=== PATIENT | male | born 1965 ===

== ENCOUNTER 2016-09-16 11:10 | Emergency (ER) | payer OTHER ==
[2016-09-16 11:22] VITALS: BMI 26.2
[2016-09-16 11:26] VITALS: TEMP 98
[2016-09-16] MEDS ORDERED: Sodium Chloride 0.9% 1,000 ML IV ONE ×3 (11:37→13:22)
[2016-09-16 12:10] LABS: EOS # 0.2 K/uL (0.0-0.7); EOS % 1.7 % (0.0-4.0); LYMPH # 1.3 K/uL (1.0-4.3); MONO # 0.8 K/uL (0.0-0.8); MONO % 7.9 % (0.0-10.0); WHITE BLOOD COUNT 10.4 K/uL (4.8-10.8)
[2016-09-16 12:15] LABS: BASO # 0.1 K/uL (0.0-0.2); BASO % 0.8 % (0.0-2.0); LYMPH % 12.3 % (20.0-40.0); MEAN CELL VOLUME 89.4 fL (80.0-94.0); MEAN CORPUSCULAR HEMOGLOBIN 29.8 pg (27.0-31.0); MEAN CORPUSCULAR HGB CONC 33.3 g/dL (33.0-37.0); MEAN PLATELET VOLUME 11.6 fL (7.2-11.7); NEUT % 77.3 % (50.0-75.0); RBC 5.97 Mil/uL (4.40-5.90); RED CELL DISTRIBUTION WIDTH 12.9 % (11.5-14.5)
[2016-09-16 12:16] LABS: HEMOGLOBIN 17.8 g/dL (12.0-18.0)
[2016-09-16 12:18] LABS: ALBUMIN 4.2 g/dL (3.5-5.0)
[2016-09-16 12:20] LABS: GFR AFRICAN-AMERICAN > 60; GFR NON-AFRICAN AMERICAN 53
[2016-09-16 12:21] LABS: ALB/GLOB RATIO 1.2 (1.0-2.1); ALT/SGPT 53 U/L (21-72); AST/SGOT 26 U/L (17-59); BLOOD UREA NITROGEN 31 mg/dL (9-20); CALCIUM 9.6 mg/dl (8.6-10.4)
[2016-09-16] MEDS ORDERED: (Novolin R) Insulin Human Regular 100 units/ml vial IV ONE (12:24)
[2016-09-16 12:29] LABS: SQUAMOUS EPITHIAL < 1 /hpf (0-5); URINE BILIRUBIN NEGATIVE (NEGATIVE); URINE BLOOD NEGATIVE (NEGATIVE); URINE CLARITY Clear (Clear); URINE COLOR Straw (YELLOW); URINE GLUCOSE (UA) 3+ mg/dL (Normal); URINE LEUKOCYTE ESTERASE NEG Leu/uL (Negative); URINE NITRATE NEGATIVE (NEGATIVE); URINE PROTEIN NEGATIVE (NEGATIVE); URINE UROBILINOGEN NORMAL mg/dL (0.2-1.0)
[2016-09-16] MEDS ORDERED: Sodium Chloride 0.9% 2,000 ML ONE (12:29)
[2016-09-16] MEDS ORDERED: (Novolin R) Insulin Human Regular 100 units/ml vial ONE (12:29)
[2016-09-16 13:50] VITALS: BP 95/57; PULSE 76; RESP 18; O2SAT 97
[2016-09-16] MEDS ORDERED: Sodium Chloride 0.9% 1,000 ML ONE (13:53)
--- NOTE | 2016-09-16 14:05 | C.PDOC ---
History Of Present Illness 51 year old male presents to the ED with complaints of polydipsia, feeling weak , and frequent urination since this morning. Patient states at home his blood sugar was >500. He states he has been compliant with his medications including Levemir SubQ, glimepiride, and metformin. He notes his blood sugar is typically in the 200s. Patient denies fever, cough, chest pain, SOB, abdominal pain, nausea, vomiting, diarrhea. Time Seen by Provider: 09/16/16 11:14 Chief Complaint (Nursing): High Blood Sugar History Per: Patient History/Exam Limitations: no limitations Onset/Duration Of Symptoms: Hrs Current Symptoms Are (Timing): Still Present Severity: Moderate Current Diabetic Medications: Insulin, Oral Medication Associated Infectious Symptoms: denies: Cough Treatment Prior To Provider Evaluation: Accucheck, Other (compliant with medications) Past Medical History Reviewed: Historical Data, Nursing Documentation, Vital Signs Vital Signs: Last Vital Signs Temp 98 F 09/16/16 11:22 Pulse 76 09/16/16 13:49 Resp 18 09/16/16 13:49 BP 95/57 L 09/16/16 13:49 Pulse Ox 97 09/16/16 14:35 - Medical History PMH: Diabetes, HTN, Hyperlipidemia - [facility] Procedures TETANUS TOXOID ADMINIST (11/26/14) Family History: States: No Known Family Hx - Social History Hx Alcohol Use: Yes (SOCIALLY) Hx Substance Use: No - Immunization History Hx Tetanus Toxoid Vaccination: No Hx Influenza Vaccination: Yes Hx Pneumococcal Vaccination: No Review Of Systems Except As Marked, All Systems Reviewed And Found Negative. Constitutional: Positive for: Weakness, Other (polydipsia ). Negative for: Fever, Chills Cardiovascular: Negative for: Chest Pain, Palpitations Respiratory: Negative for: Cough, Shortness of Breath Gastrointestinal: Negative for: Nausea, Vomiting, Abdominal Pain, Diarrhea Genitourinary: Positive for: Frequency Neurological: Negative for: Weakness, Numbness, Headache Physical Exam - Physical Exam Appears: Well, Non-toxic, In Acute Distress (appears uncomfortable ) Eye(s): bilateral: Normal Inspection Oral Mucosa: Dry Neck: Supple Chest: Symmetrical, No Deformity Cardiovascular: Rhythm Regular Respiratory: Normal Breath Sounds, No Rales, No Rhonchi, No Wheezing Gastrointestinal/Abdominal: Normal Exam, Bowel Sounds, Soft, No Tenderness Extremity: Normal ROM, No Tenderness Neurological/Psych: Oriented x3 ED Course And Treatment - Laboratory Results Result Diagrams: 09/16/16 11:52 09/16/16 11:52 O2 Sat by Pulse Oximetry: 97 (room air ) Pulse Ox Interpretation: Normal Progress Note: Accucheck >600. Blood work ordered and reviewed. Patient given IV NS boluses x 3, IV insulin. Reevaluation Time: 14:35 Reassessment Condition: Improved (Patient reassessed, is resting comfortably, in no current pain/distress. Repea accucheck 269. Patient is well appearing, and comfortable being dicharged home. Patient instructed to follow up with PMD in 1-2 days, and to continue to use his medications as usual. Patient instructed to return to ED if symptoms worsen.) Disposition Counseled Patient/Family Regarding: Studies Performed, Diagnosis, Need For Followup - Disposition Referrals: Tone Brennan MD [Medical Doctor] - Disposition: HOME/ ROUTINE Disposition Time: 14:35 Condition: STABLE Additional Instructions: FOLLOW UP WITH YOUR DOCTOR IN 1-2 DAYS DRINK PLENTY OF FLUIDS RETURN TO ER IF YOU HAVE ANY CONCERNING SYMPTOMS Instructions: Diabetic Hyperglycemia (ED) Print Language: VIETNAMESE - POA Present On Arrival: None - Clinical Impression Clinical Impression: Hyperglycemia - Scribe Statement The provider has reviewed the documentation as recorded by the Scribe Paz Tubbs All medical record entries made by the Scribe were at my direction and personally dictated by me. I have reviewed the chart and agree that the record accurately reflects my personal performance of the history, physical exam, medical decision making, and the department course for this patient. I have also personally directed, reviewed, and agree with the discharge instructions and disposition.
== END 2016-09-16 14:55 | disposition home or self-care (01) ==
LOC: C.ER 11:10
DX: E11.65 Type 2 diabetes mellitus with hyperglycemia (principal)
CPT/HCPCS: 80053; 81001; 82009; 82948; 83930; 85025; 96361; 96374; 99285; J7040

== ENCOUNTER 2017-04-24 22:12 | Emergency (ER) | payer BC, OTHER ==
[2017-04-24 22:12] VITALS: BMI 26.2
[2017-04-24] MEDS ORDERED: Sodium Chloride 0.9% 1,000 ML IV ONE (23:29)
--- NOTE | 2017-04-24 23:41 | C.PDOC ---
History Of Present Illness 51 year old male presents to the ED for evaluation of generalized body aches, vomiting and diarrhea which began 2 days ago. Patient reports he had one episode of vomiting and two episodes of diarrhea earlier today. He states his experienced the same symptoms a few days ago and has now improved. Patient denies fever, chills, abdominal pain, recent travel, or recent antibiotics use. Time Seen by Provider: 04/24/17 22:54 Chief Complaint (Nursing): Abdominal Pain History Per: Patient History/Exam Limitations: no limitations Onset/Duration Of Symptoms: Days (2) Current Symptoms Are (Timing): Still Present Radiation Of Pain To:: None Quality Of Discomfort: denies: "Pain" Associated Symptoms: Nausea, Vomiting, Diarrhea. denies: Fever, Chills Last Bowel Movement: Today Recent travel outside of the [place]: No Additional History Per: Patient Past Medical History Reviewed: Historical Data, Nursing Documentation, Vital Signs Vital Signs: Last Vital Signs Temp 98.5 F 04/24/17 22:20 Pulse 113 H 04/24/17 22:20 Resp 20 04/24/17 22:20 BP 127/84 04/24/17 22:20 Pulse Ox 100 04/24/17 23:47 - Medical History PMH: Diabetes, HTN, Hyperlipidemia Denies: Chronic Kidney Disease Surgical History: No Surg Hx - [facility] Procedures TETANUS TOXOID ADMINIST (11/26/14) Family History: States: Unknown Family Hx - Social History Hx Alcohol Use: Yes (SOCIALLY) Hx Substance Use: No - Immunization History Hx Tetanus Toxoid Vaccination: No Hx Influenza Vaccination: Yes Hx Pneumococcal Vaccination: No Review Of Systems Constitutional: Negative for: Fever, Chills Gastrointestinal: Positive for: Nausea, Vomiting, Diarrhea. Negative for: Abdominal Pain Musculoskeletal: Positive for: Other (generalized body aches ) Physical Exam - Physical Exam Appears: Non-toxic, No Acute Distress Skin: Normal Color, Warm, Dry Head: Atraumatic, Normacephalic Eye(s): bilateral: Normal Inspection Oral Mucosa: Dry Neck: Supple Chest: Symmetrical, No Deformity, No Tenderness Cardiovascular: Rhythm Regular, No Murmur, Other (tachycardia noted ) Respiratory: Normal Breath Sounds, No Rales, No Rhonchi, No Wheezing Gastrointestinal/Abdominal: Soft, No Tenderness, No Guarding, No Rebound Extremity: Normal ROM, Capillary Refill (less than 2 seconds) Neurological/Psych: Oriented x3, Normal Speech, Normal Cognition Gait: Steady ED Course And Treatment - Laboratory Results Result Diagrams: 04/24/17 23:59 04/24/17 23:59 Lab Interpretation: Abnormal (Mildly elevated lipase 311, and glucose 244.) O2 Sat by Pulse Oximetry: 100 (on RA) Pulse Ox Interpretation: Normal Progress Note: Bloodwork and urinalysis ordered and reviewed. Zofran IVP and IV Fluids administered. Reevaluation Time: 00:37 Reassessment Condition: Improved Disposition Counseled Patient/Family Regarding: Studies Performed, Diagnosis, Need For Followup, Rx Given - Disposition Referrals: Tone Brennan MD [Medical Doctor] - Disposition: HOME/ ROUTINE Disposition Time: 00:38 Condition: IMPROVED Prescriptions: Ondansetron ODT [Zofran ODT] 1 odt PO QID PRN #10 odt PRN Reason: Nausea/Vomiting Instructions: Gastroenteritis (ED) Forms: [employer] [facility] (Greek) - Clinical Impression Clinical Impression: Vomiting, Diarrhea - Scribe Statement The provider has reviewed the documentation as recorded by the Scribe (Naya Olvera) Provider Attestation: All medical record entries made by the Scribe were at my direction and personally dictated by me. I have reviewed the chart and agree that the record accurately reflects my personal performance of the history, physical exam, medical decision making, and the department course for this patient. I have also personally directed, reviewed, and agree with the discharge instructions and disposition.
[2017-04-24] MEDS ORDERED: Sodium Chloride 0.9% 1,000 ML ONE (23:44)
[2017-04-25 00:20] LABS: ALB/GLOB RATIO 1.2 (1.0-2.1); ALBUMIN 3.7 g/dL (3.5-5.0); ALT/SGPT 44 U/L (21-72); AST/SGOT 23 U/L (17-59); BASO % 0.2 % (0.0-2.0); BLOOD UREA NITROGEN 23 mg/dL (9-20); CALCIUM 8.4 mg/dl (8.6-10.4); EOS # 0.2 K/uL (0.0-0.7); GFR AFRICAN-AMERICAN > 60; GFR NON-AFRICAN AMERICAN > 60; HEMOGLOBIN 15.9 g/dL (12.0-18.0); LIPASE 311 U/L (23-300); LYMPH # 0.4 K/uL (1.0-4.3); LYMPH % 4.8 % (20.0-40.0); MEAN CELL VOLUME 88.8 fL (80.0-94.0); MEAN CORPUSCULAR HEMOGLOBIN 29.9 pg (27.0-31.0); MEAN CORPUSCULAR HGB CONC 33.7 g/dL (33.0-37.0); MEAN PLATELET VOLUME 11.5 fL (7.2-11.7); MONO # 0.6 K/uL (0.0-0.8); MONO % 7.5 % (0.0-10.0); NEUT % 85.5 % (50.0-75.0); NRBC % 0.1 % (0.0-2.0); PLATELET COUNT 94 K/uL (130-400); RBC 5.31 Mil/uL (4.40-5.90); RED CELL DISTRIBUTION WIDTH 12.7 % (11.5-14.5); WHITE BLOOD COUNT 8.2 K/uL (4.8-10.8)
[2017-04-25] MEDS ORDERED: Sodium Chloride 0.9% 1,000 ML IV ONE (00:40)
[2017-04-25] MEDS ORDERED: Sodium Chloride 0.9% 1,000 ML ONE (01:06)
[2017-04-25 01:26] LABS: BANDS 2 % (0-2); LYMPHOCYTE 3 % (20-40); MONOCYTE 8 % (0-10); NEUTROPHIL 87 % (50-75); TOTAL CELLS COUNTED 100
[2017-04-25 01:27] LABS: GIANT PLATELETS PRESENT; LARGE PLATELETS PRESENT; PLATELET ESTIMATE DECREASED (NORMAL)
[2017-04-25 02:19] VITALS: BP 123/88; PULSE 100; RESP 16; TEMP 97.6; O2SAT 99
[2017-04-25 02:27] LABS: SQUAMOUS EPITHIAL 1 /hpf (0-5); URINE BILIRUBIN NEGATIVE (NEGATIVE); URINE BLOOD NEGATIVE (NEGATIVE); URINE CLARITY Clear (Clear); URINE COLOR Straw (YELLOW); URINE GLUCOSE (UA) 3+ mg/dL (Normal); URINE LEUKOCYTE ESTERASE NEG Leu/uL (Negative); URINE NITRATE NEGATIVE (NEGATIVE); URINE PROTEIN NEGATIVE (NEGATIVE)
== END 2017-04-25 02:18 | disposition home or self-care (01) ==
LOC: C.ER 22:12
DX: R19.7 Diarrhea, unspecified (principal); R11.10 Vomiting, unspecified; E11.9 Type 2 diabetes mellitus without complications; E78.5 Hyperlipidemia, unspecified; I10 Essential (primary) hypertension
CPT/HCPCS: 80053; 81001; 83690; 85025; 96361; 96374; 99284; J2405; J7040

== ENCOUNTER 2018-02-02 10:01 | Emergency (ER) | payer BC, OTHER ==
[2018-02-02 10:01] VITALS: BMI 26.2
[2018-02-02 10:21] VITALS: RESP 18; O2SAT 98
[2018-02-02] MEDS ORDERED: Sodium Chloride 0.9% 2,000 ML IV ONE (10:35)
--- NOTE | 2018-02-02 10:35 | C.PDOC ---
History Of Present Illness 52 y/o male presents to ED complaining of high blood sugar level earlier today. Patient states he has been feeling thirsty and it has been going on since the weekend. States that he has not had a significant diet change despite the . Patient denies fever, abdominal pain, nausea, or vomiting. Patient has been compliant with his medications. Time Seen by Provider: 02/02/18 10:31 Chief Complaint (Nursing): High Blood Sugar History Per: Patient History/Exam Limitations: no limitations Onset/Duration Of Symptoms: Hrs Current Symptoms Are (Timing): Still Present Past Medical History Reviewed: Historical Data, Nursing Documentation, Vital Signs Vital Signs: Last Vital Signs Temp 98.2 F 02/02/18 10:18 Pulse 92 H 02/02/18 10:18 Resp 18 02/02/18 10:18 BP 117/80 02/02/18 10:18 Pulse Ox 98 02/02/18 10:18 - Medical History PMH: Diabetes, HTN, Hyperlipidemia Denies: Chronic Kidney Disease - [facility] Procedures TETANUS TOXOID ADMINIST (11/26/14) Family History: States: No Known Family Hx - Social History Hx Alcohol Use: Yes (SOCIALLY) Hx Substance Use: No - Immunization History Hx Tetanus Toxoid Vaccination: No Hx Influenza Vaccination: Yes Hx Pneumococcal Vaccination: No Review Of Systems Except As Marked, All Systems Reviewed And Found Negative. Constitutional: Negative for: Fever Cardiovascular: Negative for: Chest Pain Gastrointestinal: Negative for: Nausea, Vomiting, Abdominal Pain Physical Exam - Physical Exam Appears: Non-toxic, No Acute Distress Skin: Warm, Dry Head: Atraumatic, Normacephalic Eye(s): bilateral: Normal Inspection Oral Mucosa: Moist Chest: Symmetrical Cardiovascular: Rhythm Regular, No Murmur Respiratory: Normal Breath Sounds, No Rales, No Rhonchi, No Wheezing Gastrointestinal/Abdominal: Soft, No Tenderness Extremity: No Pedal Edema Extremity: Bilateral: Atraumatic, Normal Color And Temperature, Normal ROM Neurological/Psych: Oriented x3, Normal Speech, Normal Motor, Normal Sensation Gait: Steady ED Course And Treatment - Laboratory Results Result Diagrams: 02/02/18 11:12 02/02/18 11:12 O2 Sat by Pulse Oximetry: 98 (RA) Pulse Ox Interpretation: Normal Progress - Re-Evaluation Re-evaluation Note: 02/02/18 14:05 FEELS BETTER SP IVF, INSULIN. TOLERATING PO WO DIFF WISHES DC HOME - Data Reviewed Data Reviewed: Lab, Old records Medical Decision Making Medical Decision Making: Plan: --VBG --Labs --IV fluids --Urinalysis Disposition - Disposition Referrals: YOUR,PMD [Other] Disposition: HOME/ ROUTINE Disposition Time: 14:04 Condition: IMPROVED Instructions: Hyperglycemia, Adult (DC) Forms: [employer] (Telugu), Work Excuse - Clinical Impression Clinical Impression: Hyperglycemia - Scribe Statement The provider has reviewed the documentation as recorded by the Oliva Cole Provider Attestation: All medical record entries made by the Oliva were at my direction and personally dictated by me. I have reviewed the chart and agree that the record accurately reflects my personal performance of the history, physical exam, medical decision making, and the department course for this patient. I have also personally directed, reviewed, and agree with the discharge instructions and disposition.
[2018-02-02 11:08] LABS: VENOUS BLOOD GAS BASE EXCESS -4.9 mmol/L (0.0-2.0); VENOUS BLOOD GAS PCO2 39 mmHg (40-60); VENOUS BLOOD GAS PO2 41 mm/Hg (30-55); VENOUS BLOOD PH 7.33 (7.32-7.43)
[2018-02-02 11:20] LABS: SQUAMOUS EPITHIAL < 1 /hpf (0-5); URINE BACTERIA RARE (<OCC); URINE BILIRUBIN NEGATIVE (NEGATIVE); URINE BLOOD NEGATIVE (NEGATIVE); URINE CLARITY Clear (Clear); URINE COLOR Straw (YELLOW); URINE GLUCOSE (UA) 3+ mg/dL (Normal); URINE LEUKOCYTE ESTERASE NEG Leu/uL (Negative); URINE PROTEIN NEGATIVE (NEGATIVE); URINE UROBILINOGEN NORMAL mg/dL (0.2-1.0)
[2018-02-02 11:23] LABS: BASO # 0.1 K/uL (0.0-0.2); BASO % 0.8 % (0.0-2.0); EOS # 0.2 K/uL (0.0-0.7); EOS % 2.8 % (0.0-4.0); HEMOGLOBIN 16.9 g/dL (12.0-18.0); LYMPH # 1.3 K/uL (1.0-4.3); MEAN CELL VOLUME 89.4 fL (80.0-94.0); MEAN CORPUSCULAR HEMOGLOBIN 29.9 pg (27.0-31.0); MEAN CORPUSCULAR HGB CONC 33.5 g/dL (33.0-37.0); MEAN PLATELET VOLUME 11.9 fL (7.2-11.7); MONO # 0.7 K/uL (0.0-0.8); MONO % 9.5 % (0.0-10.0); NEUT # 5.5 K/uL (1.8-7.0); NEUT % 69.9 % (50.0-75.0); NRBC % 0.1 % (0.0-2.0); RBC 5.63 Mil/uL (4.40-5.90); RED CELL DISTRIBUTION WIDTH 12.6 % (11.5-14.5); WHITE BLOOD COUNT 7.8 K/uL (4.8-10.8)
[2018-02-02 11:38] LABS: ALB/GLOB RATIO 1.4 (1.0-2.1); ALBUMIN 4.4 g/dL (3.5-5.0); ALT/SGPT 45 U/L (21-72); AST/SGOT 28 U/L (17-59); BLOOD UREA NITROGEN 24 mg/dL (9-20); CALCIUM 9.2 mg/dl (8.6-10.4); GFR NON-AFRICAN AMERICAN > 60
[2018-02-02] MEDS ORDERED: (Novolin R) Insulin Human Regular 100 units/ml vial IV STA (12:16)
[2018-02-02] MEDS ORDERED: (Novolin R) Insulin Human Regular 100 units/ml vial ONE (12:24)
[2018-02-02 14:09] VITALS: BP 136/79; PULSE 78; TEMP 98
== END 2018-02-02 14:09 | disposition home or self-care (01) ==
LOC: C.ER 10:01
DX: E11.65 Type 2 diabetes mellitus with hyperglycemia (principal); E78.5 Hyperlipidemia, unspecified; I10 Essential (primary) hypertension
CPT/HCPCS: 80053; 81001; 82803; 82948; 85025; 99284; J7030